=== PATIENT | female | born 1960 | race Caucasian/White ===

== ENCOUNTER 2018-07-06 21:31 | Inpatient (IN) | payer OTHER ==
[~2018-07-06] VITALS: Ht 162.6 cm; Wt 128.5 kg
[2018-07-06] MEDS ORDERED: ADENOSINE 6 MG/2 ML ONE ×2 (21:47→22:00)
[2018-07-06 21:57] LABS: BASOPHILS # (AUTO) 0.13 x10^3/uL (0-0.1); BASOPHILS % (AUTO) 1 % (0-1); EOSINOPHILS % (AUTO) 1 % (1-7); LYMPHOCYTES # (AUTO) 4.65 x10^3/uL (1-3.4); LYMPHOCYTES % (AUTO) 39 % (22-44); MD NO; MEAN CORPUSCULAR HEMOGLOBIN 29.3 pg (27.0-34.8); MEAN CORPUSCULAR HGB CONC 33.1 g/dL (32.4-35.8); MEAN CORPUSCULAR VOLUME 88.4 fL (80-100); MEAN PLATELET VOLUME 8.2 fL (7.4-10.4); MONOCYTES # (AUTO) 0.93 x10^3/uL (0.2-0.8); MONOCYTES % (AUTO) 8 % (2-9); NEUTROPHILS # (AUTO) 6.08 x10^3/uL (1.8-6.8); NEUTROPHILS % (AUTO) 51 % (42-75); PLATELET COUNT 434 x10^3/uL (130-400)
[2018-07-06] MEDS ORDERED: SODIUM CHLORIDE 0.9% 1,000ML IVBOLUS ONE (22:00)
[2018-07-06] MEDS ORDERED: SODIUM CHLORIDE FLUSH 10ML SYR IVF ONE (22:00)
[2018-07-06] MEDS ORDERED: ADENOSINE 6 MG/2 ML IVPush ONE ×2 (22:00)
[2018-07-06] MEDS ORDERED: PROPOFOL 10 MG/ML, 20ML ONE (22:04)
[2018-07-06 22:08] LABS: ALANINE AMINOTRANSFERASE 78 U/L (12-78); ALBUMIN 3.5 g/dL (3.4-5.0); ANION GAP 11 mmol/L (5-15); CALCIUM 8.9 mg/dL (8.5-10.1); CHLORIDE 108 mmol/L (98-107); CREATININE 1.43 mg/dL (0.55-1.02)
[2018-07-06 22:18] LABS: ALKALINE PHOSPHATASE 113 U/L (45-117); BILIRUBIN,TOTAL 0.6 mg/dL (0.2-1.0); T4 (THYROXINE) 11.8 mcg/dL (4.8-13.9); TOTAL PROTEIN 8.2 g/dL (6.4-8.2)
[2018-07-06] MEDS ORDERED: PROPOFOL 10 MG/ML, 20ML IVPush ONE (22:30)
[2018-07-06] MEDS ORDERED: APIXABAN 5 MG TABLET PO ONE (23:00)
[2018-07-07] MEDS ORDERED: LABETALOL 5MG/ML, 20ML IVPush PRN
[2018-07-07] MEDS ORDERED: TEMAZEPAM 15 MG CAPSULE PO PRN
[2018-07-07] MEDS ORDERED: ACETAMINOPHEN 325 MG TABLET PO PRN
[2018-07-07] MEDS ORDERED: DOCUSATE 100 MG CAPSULE PO PRN
[2018-07-07] MEDS ORDERED: ONDANSETRON 2MG/ML, 2ML IVPush PRN
[2018-07-07] MEDS ORDERED: MELA1TAB15 PO (00:47)
[2018-07-07] MEDS ORDERED: ASPI-650 PO (00:47)
[2018-07-07 01:00] VITALS: BP 146/98
[2018-07-07] MEDS: SODIUM CHLORIDE 0.9% 1,000 ML IV SCH ×3 (01:19→23:44)
[2018-07-07] MEDS ORDERED: BUDE10.2 PO (01:53)
[2018-07-07] MEDS ORDERED: AMLO5TAB4 PO (01:53)
[2018-07-07] MEDS ORDERED: ALBU90AE PO (01:53)
[2018-07-07 05:03] LABS: BASOPHILS # (AUTO) 0.14 x10^3/uL (0-0.1); BASOPHILS % (AUTO) 1 % (0-1); EOSINOPHILS # (AUTO) 0.08 x10^3/uL (0-0.4); EOSINOPHILS % (AUTO) 1 % (1-7); LYMPHOCYTES # (AUTO) 3.57 x10^3/uL (1-3.4); LYMPHOCYTES % (AUTO) 36 % (22-44); MD NO; MEAN CORPUSCULAR HEMOGLOBIN 29.5 pg (27.0-34.8); MEAN CORPUSCULAR HGB CONC 33.5 g/dL (32.4-35.8); MEAN CORPUSCULAR VOLUME 88.2 fL (80-100); MEAN PLATELET VOLUME 8.4 fL (7.4-10.4); MONOCYTES # (AUTO) 1.08 x10^3/uL (0.2-0.8); MONOCYTES % (AUTO) 11 % (2-9); NEUTROPHILS # (AUTO) 5.18 x10^3/uL (1.8-6.8); NEUTROPHILS % (AUTO) 52 % (42-75); PLATELET COUNT 329 x10^3/uL (130-400); RED BLOOD COUNT 4.82 x10^6/uL (3.82-5.3); RED CELL DISTRIBUTION WIDTH 14.4 % (9.6-15.2)
[2018-07-07 05:11] LABS: ANION GAP 8 mmol/L (5-15); CHLORIDE 112 mmol/L (98-107)
[2018-07-07 05:12] LABS: CREATININE 0.78 mg/dL (0.55-1.02)
[2018-07-07 06:43] VITALS: BP 120/79
[2018-07-07] MEDS: APIXABAN 5 MG TABLET PO SCH ×2 (09:44→20:00)
[2018-07-07 12:54] VITALS: BP 118/76
[2018-07-07 19:47] VITALS: BP 139/86
[2018-07-07] MEDS ORDERED: MELATONIN 5 MG TABLET PO PRN (21:00)
[2018-07-07] MEDS ORDERED: AMLODIPINE 5 MG TABLET PO SCH (21:00)
[2018-07-08 01:57] VITALS: BP 111/72
[2018-07-08 05:11] LABS: BASOPHILS # (AUTO) 0.05 x10^3/uL (0-0.1); BASOPHILS % (AUTO) 1 % (0-1); EOSINOPHILS # (AUTO) 0.18 x10^3/uL (0-0.4); EOSINOPHILS % (AUTO) 2 % (1-7); LYMPHOCYTES # (AUTO) 3.01 x10^3/uL (1-3.4); LYMPHOCYTES % (AUTO) 39 % (22-44); MD NO; MEAN CORPUSCULAR HEMOGLOBIN 30.5 pg (27.0-34.8); MEAN CORPUSCULAR HGB CONC 34.6 g/dL (32.4-35.8); MEAN PLATELET VOLUME 8.2 fL (7.4-10.4); MONOCYTES # (AUTO) 0.91 x10^3/uL (0.2-0.8); MONOCYTES % (AUTO) 12 % (2-9); NEUTROPHILS # (AUTO) 3.53 x10^3/uL (1.8-6.8); NEUTROPHILS % (AUTO) 46 % (42-75); PLATELET COUNT 333 x10^3/uL (130-400); RED BLOOD COUNT 4.75 x10^6/uL (3.82-5.3); RED CELL DISTRIBUTION WIDTH 14.1 % (9.6-15.2)
[2018-07-08 05:24] LABS: ANION GAP 9 mmol/L (5-15); CALCIUM 8.2 mg/dL (8.5-10.1); CHLORIDE 110 mmol/L (98-107); CREATININE 0.55 mg/dL (0.55-1.02)
[2018-07-08] MEDS ORDERED: LEVOTHYROXINE 25 MCG TABLET PO SCH (06:00)
[2018-07-08 08:35] VITALS: BP 144/88
[2018-07-08] MEDS: APIXABAN 5 MG TABLET PO SCH (08:41)
[2018-07-08] MEDS ORDERED: METOPROLOL TARTRATE 25 MG TABLET PO SCH (09:00)
[2018-07-08 13:44] VITALS: BP 148/83
[2018-07-08] MEDS ORDERED: METO25TA35 PO (14:55)
[2018-07-08] MEDS ORDERED: APIX5TAB PO (14:55)
[2018-07-08] MEDS: SODIUM CHLORIDE 0.9% 1,000 ML IV SCH (15:11)
== END 2018-07-08 16:27 | disposition home or self-care (01) | DRG 683 ==
LOC: ED 23:05 → EDIP 23:10 → UNDOADMIN 23:10 → ED 23:14 → EDIP 23:51 → 5SO 07-07 00:21 → DCLOUNGE 07-08 16:09
PROVIDERS: ADMIT Internal Medicine; ATTEND Internal Medicine
PROC: 5A2204Z Restoration of Cardiac Rhythm, Single (ICD-10-PCS; principal; 2018-07-06)
DX: N17.9 Acute kidney failure, unspecified (principal); I47.1 Supraventricular tachycardia; D68.59 Other primary thrombophilia; Z68.42 Body mass index [BMI] 45.0-49.9, adult; I48.92 Unspecified atrial flutter; E03.9 Hypothyroidism, unspecified; E66.01 Morbid (severe) obesity due to excess calories; G62.9 Polyneuropathy, unspecified; I11.9 Hypertensive heart disease without heart failure; I44.60 Unspecified fascicular block; I45.10 Unspecified right bundle-branch block; I48.91 Unspecified atrial fibrillation; F41.9 Anxiety disorder, unspecified; R73.9 Hyperglycemia, unspecified; J45.909 Unspecified asthma, uncomplicated; M71.20 Synovial cyst of popliteal space [Baker], unspecified knee; Z79.01 Long term (current) use of anticoagulants; Z82.0 Family history of epilepsy and other diseases of the nervous system; Z82.3 Family history of stroke; Z82.49 Family history of ischemic heart disease and other diseases of the circulatory system; Z86.711 Personal history of pulmonary embolism
CPT/HCPCS: 36415; 71045; 78582; 80048; 80053; 83735; 84100; 84436; 84443; 85025; 85379; 92960; 93005; 93306; 93970; 99152; 99285; 99291; G0378; J2704; A9540; A9558; C9898; J7030

== ENCOUNTER 2018-07-16 20:53 | Emergency (ER) | payer OTHER ==
[~2018-07-16] VITALS: Ht 162.6 cm; Wt 122.7 kg
[~2018-07-16 20:53] MED LIST: ALBU90AE PO; AMLO5TAB4 PO; APIX5TAB PO; ASPI-650 PO; BUDE10.2 PO; MELA1TAB15 PO; METO25TA35 PO
[2018-07-16] MEDS ORDERED: DILTIAZEM 5 MG/ML, 5ML ONE (21:11)
[2018-07-16] MEDS ORDERED: ADENOSINE 6 MG/2 ML ONE (21:13)
[2018-07-16] MEDS ORDERED: ADENOSINE 6 MG/2 ML IVPush ONE ×2 (21:30)
[2018-07-16] MEDS ORDERED: SODIUM CHLORIDE 0.9% 1,000ML IVBOLUS ONE (21:30)
[2018-07-16] MEDS ORDERED: DILTIAZEM 5 MG/ML, 5ML IV ONE (21:30)
[2018-07-16] MEDS ORDERED: FLUT1DIS3 INH (21:32)
[2018-07-16 22:04] LABS: ALBUMIN 3.6 g/dL (3.4-5.0); ANION GAP 12 mmol/L (5-15); CHLORIDE 106 mmol/L (98-107); CREATININE 0.85 mg/dL (0.55-1.02)
[2018-07-16 22:05] LABS: MEAN CORPUSCULAR HGB CONC 33.7 g/dL (32.4-35.8); MEAN CORPUSCULAR VOLUME 88.9 fL (80-100); MEAN PLATELET VOLUME 8.7 fL (7.4-10.4); PLATELET COUNT 397 x10^3/uL (130-400); RED BLOOD COUNT 5.66 x10^6/uL (3.82-5.3); RED CELL DISTRIBUTION WIDTH 14.3 % (9.6-15.2)
[2018-07-16 22:08] LABS: TROPONIN I < 0.015 ng/mL (0.000-0.045)
[2018-07-16] MEDS ORDERED: PROPOFOL 10 MG/ML, 20ML ONE (22:24)
[2018-07-16] MEDS ORDERED: PROPOFOL 10 MG/ML, 20ML IVP ONE (22:30)
[2018-07-16 22:32] LABS: BASOPHILS # (AUTO) 0.09 x10^3/uL (0-0.1); BASOPHILS % (AUTO) 1 % (0-1); EOSINOPHILS # (AUTO) 0.15 x10^3/uL (0-0.4); EOSINOPHILS % (AUTO) 1 % (1-7); LYMPHOCYTES # (AUTO) 4.99 x10^3/uL (1-3.4); LYMPHOCYTES % (AUTO) 45 % (22-44); MD SCAN; MONOCYTES # (AUTO) 1.22 x10^3/uL (0.2-0.8); MONOCYTES % (AUTO) 11 % (2-9); NEUTROPHILS # (AUTO) 4.69 x10^3/uL (1.8-6.8); NEUTROPHILS % (AUTO) 42 % (42-75)
[2018-07-16] MEDS ORDERED: METOPROLOL 1 MG/ML, 5ML ONE ×2 (22:44→22:49)
[2018-07-16] MEDS ORDERED: METOPROLOL TARTRATE 25 MG TABLET ONE ×2 (23:17→23:20)
[2018-07-16] MEDS ORDERED: METOPROLOL 1 MG/ML, 5ML IVPush STA ×2 (23:25)
[2018-07-16 23:28] VITALS: BP 128/77
[2018-07-16] MEDS ORDERED: METOPROLOL TARTRATE 50 MG TABLET PO ONE (23:30)
== END 2018-07-16 23:43 | disposition home or self-care (01) ==
LOC: ED 22:49
DX: I48.0 Paroxysmal atrial fibrillation (principal); I10 Essential (primary) hypertension
CPT/HCPCS: 36415; 80048; 82040; 84484; 85025; 92960; 93005; 96374; 99152; 99291; J0153; J2704; J7030

== ENCOUNTER 2018-11-02 14:34 | Emergency (ER) | payer OTHER ==
[~2018-11-02] VITALS: Ht 162.6 cm; Wt 126.0 kg
[~2018-11-02 14:34] MED LIST changes: +FLUT1DIS3 INH
[2018-11-02] MEDS ORDERED: METO25TA35 PO (14:53)
[2018-11-02] MEDS ORDERED: BENZ100C PO (14:53)
[2018-11-02] MEDS ORDERED: ADENOSINE 6 MG/2 ML ONE (14:57)
[2018-11-02] MEDS ORDERED: ADENOSINE 6 MG/2 ML IVPush ONE (15:00)
[2018-11-02] MEDS ORDERED: SODIUM CHLORIDE FLUSH 10ML SYR IVF ONE (15:00)
--- NOTE | 2018-11-02 15:00 | NUR ---
Late note entry for 1454: First contact with pt. Pt ambulates with steady gait and balance. Pt pushed in wheelchair from triage to ED room and walked to ED gurney. Pt tachycardic at 190. Pt is AOX4, cms intact, no neuro defecits observed. PIV established by staffing clerk in right hand. career technical counselor performing EKG at bedside. Pt connected to all monitors. Pt has unlabored respirations equal bilaterally. All safety measures in place. Call light within reach.
[2018-11-02] MEDS ORDERED: PROPOFOL 10 MG/ML, 20ML ONE (15:12)
[2018-11-02 15:21] LABS: ALBUMIN 3.4 g/dL (3.4-5.0); ANION GAP 10 mmol/L (5-15); CALCIUM 8.8 mg/dL (8.5-10.1); CHLORIDE 107 mmol/L (98-107); CREATININE 0.84 mg/dL (0.55-1.02)
[2018-11-02] MEDS ORDERED: METOPROLOL 1 MG/ML, 5ML IVPush ONE (15:30)
[2018-11-02] MEDS ORDERED: METOPROLOL TARTRATE 25 MG TABLET ONE (15:50)
[2018-11-02 15:56] VITALS: BP 130/76
--- NOTE | 2018-11-02 15:57 | NUR ---
LATE NOTE ENTRY FOR 1509: Pt provided medication per EMAR for cardioversion. Pt tolerated medication with out complications. Suction set up at bedside. Ambu bag set up and ready to use. Oxygen via nasal cannula set up at bedside. All safety measures in place. Pt connected to groundwater monitoring technician, NIBP, and continous pulse ox. Pt maintained airway and remained AOX4. NADN. Pt reverted back to SVT post medication administration. Addendum: 11/02/18 at 1559 by [employer] Code blue card, reversal agent also set up at bedside.
--- NOTE | 2018-11-02 15:59 | NUR ---
LATE NOTE ENTRY FOR 1516: Consent for procedural sedation obtained. Pt states consent and understanding. Pt connected to cardiac cath technician, nibp, and continous pulse ox. Pt on 2L of oxygen via nasal cannula. Suciton set up at bedside. Ambu bag set up and ready for use at bedside. Code blue cart at bedside. Reversal agent at bedside. EDMD provided procedural sedation medication of propofol 70 mg. Wittnessed waste of 120 mg propofol with two ED staff RNs. Jaw thrust manuever performed post cardioversion procedure to help maintain pt's apneic airway. Pt regained maintaining airway at 1521. Pt tolerated procedure without complications. Pt returned to baseline at 1521 AOX4, BP 140/92, 90% ROOM AIR, HR 95, RR 19. Pt's family at bedside. All safety measures in place. ZOYAN.
[2018-11-02] MEDS ORDERED: METOPROLOL TARTRATE 50 MG TABLET PO ONE (16:00)
--- NOTE | 2018-11-02 16:05 | NUR ---
Provided pt medication per EMAR. Family at bedside. NADN. All safety measures in place. No needs expressed. Call light within reach.
--- NOTE | 2018-11-02 16:05 | NUR ---
LATE NOTE ENTRY FOR 1521: Pt regained maintaining airway at 1521. Pt tolerated procedure without complications. Pt returned to baseline at 1521 AOX4, BP 140/92, 90% ROOM AIR, HR 95, RR 19. Pt's family at bedside. All safety measures in place. NADN.
--- NOTE | 2018-11-02 16:11 | NUR ---
TASK RN: PT SITTING UP IN [place] BEE NOTED. NSR ON MONITOR. DENIES CP/SOB. DC EDUCATION PROVIDED, PT DEMONSTRATES UNDERSTANDING. PT AMBULATED STEADILY TO DC WITH RN AND FAMILY. FAMILY TO TRANSPORT PT HOME.
== END 2018-11-02 16:13 | disposition home or self-care (01) ==
LOC: ED 16:00
DX: I47.1 Supraventricular tachycardia (principal); I48.91 Unspecified atrial fibrillation; I10 Essential (primary) hypertension
CPT/HCPCS: 36415; 80048; 82040; 83735; 92960; 93005; 96374; 99152; 99285; J0153

== ENCOUNTER 2018-12-04 15:11 | Emergency (ER) | payer OTHER ==
[~2018-12-04] VITALS: Ht 162.6 cm; Wt 126.0 kg
[~2018-12-04 15:11] MED LIST changes: +BENZ100C PO
[2018-12-04] MEDS ORDERED: SODIUM CHLORIDE FLUSH 10ML SYR IVF ONE (15:30)
[2018-12-04] MEDS ORDERED: ADENOSINE 6 MG/2 ML ONE ×2 (15:35→15:43)
[2018-12-04 15:37] LABS: BASOPHILS # (AUTO) 0.05 x10^3/uL (0-0.1); BASOPHILS % (AUTO) 1 % (0-1); EOSINOPHILS # (AUTO) 0.12 x10^3/uL (0-0.4); EOSINOPHILS % (AUTO) 1 % (1-7); LYMPHOCYTES # (AUTO) 3.69 x10^3/uL (1-3.4); LYMPHOCYTES % (AUTO) 37 % (22-44); MD NO; MEAN CORPUSCULAR HEMOGLOBIN 29.4 pg (27.0-34.8); MEAN CORPUSCULAR VOLUME 89.1 fL (80-100); MEAN PLATELET VOLUME 8.3 fL (7.4-10.4); MONOCYTES # (AUTO) 1.11 x10^3/uL (0.2-0.8); MONOCYTES % (AUTO) 11 % (2-9); NEUTROPHILS # (AUTO) 5.11 x10^3/uL (1.8-6.8); NEUTROPHILS % (AUTO) 51 % (42-75); PLATELET COUNT 422 x10^3/uL (130-400); RED BLOOD COUNT 5.74 x10^6/uL (3.82-5.3); RED CELL DISTRIBUTION WIDTH 14.6 % (9.6-15.2)
--- NOTE | 2018-12-04 15:47 | NUR ---
ATTEMPTED CARDIOVERSION W/ 6 THEN 12 RAPID PUSH ADENOSINE W/ MD [place] AT BEDSIDE. PT CONVERTED FOR 10 BEATS THEN RESUMED SVT RATE OF 190S. CONSULTING W/ CARDS. PT IN BED, NAD, NO NEEDS AT THIS TIME, AWARE OF POC. WCTM
[2018-12-04 15:49] LABS: ALANINE AMINOTRANSFERASE 27 U/L (12-78); ALBUMIN 3.3 g/dL (3.4-5.0); ANION GAP 9 mmol/L (5-15); CALCIUM 8.4 mg/dL (8.5-10.1); CHLORIDE 109 mmol/L (98-107); CREATININE 0.97 mg/dL (0.55-1.02); T4 (THYROXINE) 11.2 mcg/dL (4.8-13.9)
[2018-12-04] MEDS ORDERED: PROPOFOL 10 MG/ML, 20ML ONE (15:55)
[2018-12-04 15:59] LABS: ALKALINE PHOSPHATASE 91 U/L (45-117); BILIRUBIN,TOTAL 0.4 mg/dL (0.2-1.0); TOTAL PROTEIN 7.8 g/dL (6.4-8.2)
[2018-12-04] MEDS ORDERED: ADENOSINE 6 MG/2 ML IVPush ONE ×2 (17:00)
[2018-12-04] MEDS ORDERED: PROPOFOL 10 MG/ML, 20ML IVPush ONE (17:00)
--- NOTE | 2018-12-04 17:01 | NUR ---
IPT. TOLERATED HER CARDIOVERSION WELL. PT. REMAINS MONITORED. PT. IS AWAKE AND ALERT, RESTING WITHOUT CONCERNS.
--- NOTE | 2018-12-04 18:07 | NUR ---
PT. WAS GIVEN DISCHARGE INSTRUCTIONS WITH UNDERSTANDING VERBALIZED ALONG WITH WILLINGNESS TO COMPLY. PT.'S IV WAS DCD',CATH TIP INTACT. PRESSURE HELD WITH HEMOSTASIS ACHIEVED. PT. WAS AMBULATORY WITH A STEADY GAIT TO THE DISCHARGE DESK, VSS. PT.'S DAUGHTER IS DRIVING.
[2018-12-04 18:10] VITALS: BP 118/70
[2018-12-23] MEDS ORDERED: FLUT9.9S NS (11:12)
[2018-12-23] MEDS ORDERED: AMLO-150 PO (11:12)
[2018-12-23] MEDS ORDERED: BUDE10.22 INH (11:12)
[2018-12-23] MEDS ORDERED: APIX2.5T PO (11:12)
== END 2018-12-04 18:17 | disposition home or self-care (01) ==
LOC: ED 17:36
DX: I47.1 Supraventricular tachycardia (principal); R55 Syncope and collapse
CPT/HCPCS: 36415; 80053; 84436; 84443; 85025; 92960; 93005; 96374; 99285; J0153

== ENCOUNTER → 2018-12-23 | Outpatient (CLI) | payer OTHER ==
[~2018-12-23] MED LIST changes: +AMLO-150 PO; +APIX2.5T PO; +BUDE10.22 INH; +FLUT9.9S NS; +OMNIPAQUE 350 MG/ML, 150 ML BOTTLE ONE
== END | disposition home or self-care (01) ==
LOC: CFH 09:43
PROVIDERS: ATTEND Internal Medicine Cardiovascular Disease
DX: I48.91 Unspecified atrial fibrillation (principal); M47.814 Spondylosis without myelopathy or radiculopathy, thoracic region
CPT/HCPCS: 71046; 75572; Q9967

== ENCOUNTER 2018-12-25 06:33 | Day surgery (SDC) | payer OTHER ==
[2018-12-23 11:12] VITALS: BP 159/102
[2018-12-23 11:48] LABS: BASOPHILS # (AUTO) 0.05 x10^3/uL (0-0.1); BASOPHILS % (AUTO) 1 % (0-1); EOSINOPHILS % (AUTO) 1 % (1-7); LYMPHOCYTES # (AUTO) 2.67 x10^3/uL (1-3.4); LYMPHOCYTES % (AUTO) 33 % (22-44); MD NO; MEAN CORPUSCULAR HEMOGLOBIN 29.3 pg (27.0-34.8); MEAN CORPUSCULAR HGB CONC 32.6 g/dL (32.4-35.8); MEAN CORPUSCULAR VOLUME 89.9 fL (80-100); MEAN PLATELET VOLUME 8.4 fL (7.4-10.4); MONOCYTES # (AUTO) 1.01 x10^3/uL (0.2-0.8); MONOCYTES % (AUTO) 13 % (2-9); NEUTROPHILS # (AUTO) 4.16 x10^3/uL (1.8-6.8); NEUTROPHILS % (AUTO) 52 % (42-75); PLATELET COUNT 360 x10^3/uL (130-400); RED BLOOD COUNT 5.46 x10^6/uL (3.82-5.3); RED CELL DISTRIBUTION WIDTH 14.4 % (9.6-15.2)
[2018-12-23 11:58] LABS: ALBUMIN 3.6 g/dL (3.4-5.0); ANION GAP 6 mmol/L (5-15); CALCIUM 8.6 mg/dL (8.5-10.1); CHLORIDE 108 mmol/L (98-107)
[2018-12-23 12:02] LABS: ALANINE AMINOTRANSFERASE 25 U/L (12-78); ALKALINE PHOSPHATASE 91 U/L (45-117); BILIRUBIN,TOTAL 0.7 mg/dL (0.2-1.0); CREATININE 0.62 mg/dL (0.55-1.02); TOTAL PROTEIN 7.8 g/dL (6.4-8.2)
[~2018-12-25] VITALS: Ht 162.6 cm; Wt 125.0 kg
[~2018-12-25 06:33] MED LIST changes: -OMNIPAQUE 350 MG/ML, 150 ML BOTTLE ONE
[2018-12-25] MEDS ORDERED: SODIUM CHLORIDE 0.9% 1,000 ML IV SCH ×2 (06:45→07:00)
[2018-12-25] MEDS ORDERED: MIDAZOLAM 1 MG/ML, 2ML ONE (07:22)
[2018-12-25] MEDS ORDERED: PROPOFOL 10 MG/ML, 20ML ONE (07:22)
[2018-12-25] MEDS ORDERED: FENTANYL PF 250 MCG/5ML ONE (07:22)
[2018-12-25] MEDS ORDERED: ROCURONIUM 10 MG/ML,10ML ONE (07:24)
[2018-12-25] MEDS ORDERED: ONDANSETRON 2MG/ML, 2ML ONE (07:24)
[2018-12-25] MEDS ORDERED: PHENYLEPHRINE 10 MG/ML ONE (07:24)
[2018-12-25] MEDS ORDERED: SUCCINYLCHOLINE 20 MG/ML, 10ML ONE (07:24)
[2018-12-25] MEDS ORDERED: DEXAMETHASONE 4 MG/ML, 5ML ONE (07:26)
[2018-12-25] MEDS ORDERED: PROTAMINE SULFATE 10 MG/ML, 5ML ONE (07:28)
[2018-12-25] MEDS ORDERED: HEPARIN 1,000 UNITS/ML, 10ML ONE (07:28)
[2018-12-25] MEDS ORDERED: ADENOSINE 6 MG/2 ML ONE ×2 (08:30→08:34)
[2018-12-25] MEDS ORDERED: METOPROLOL 1 MG/ML, 5ML ONE (08:31)
[2018-12-25] MEDS ORDERED: TEMPLATE NON-FORMULARY MED. (Budesonide/Formoterol Fumarate (Symbicort 80-4.5 Mcg Inhaler) INH PRN (09:30)
[2018-12-25] MEDS ORDERED: ACETAMINOPHEN 325 MG TABLET PO PRN (09:30)
[2018-12-25] MEDS ORDERED: TEMPLATE NON-FORMULARY MED. (Albuterol Sulfate (Proair Respiclick) 2 PUFFS) PO SCH (09:30)
[2018-12-25] MEDS ORDERED: TEMPLATE NON-FORMULARY MED. (Fluticasone Propionate (Flonase Allergy Relief) 1 SPRAY) NS PRN (09:30)
[2018-12-25] MEDS ORDERED: DIAZEPAM 5 MG/ML, 2ML IVPush PRN (10:00)
[2018-12-25] MEDS ORDERED: LABETALOL 5MG/ML, 20ML IV PRN (10:00)
[2018-12-25] MEDS ORDERED: HYDROmorphone 2 MG/ML, 1ML IVPush PRN (10:00)
[2018-12-25] MEDS ORDERED: FENTANYL PF 100 MCG/2ML IV PRN (10:00)
[2018-12-25] MEDS ORDERED: ONDANSETRON ODT 8 MG PO PRN (10:00)
[2018-12-25] MEDS ORDERED: MEPERIDINE/PF 25MG/0.5ML IVPush PRN (10:00)
[2018-12-25] MEDS ORDERED: MORPHINE SULFATE 4 MG/ML, 1ML IVPush PRN (10:00)
[2018-12-25] MEDS ORDERED: hydrALAzine 20 MG/ML, 1ML IV PRN (10:00)
[2018-12-25] MEDS ORDERED: MIDAZOLAM 1 MG/ML, 2ML IV PRN (10:00)
[2018-12-25] MEDS ORDERED: EPHEDRINE 50 MG/ML, 1ML IVPush PRN (10:00)
[2018-12-25] MEDS ORDERED: OXYcodone 5 MG/5 ML ORAL.SOL UDC PO PRN (10:00)
[2018-12-25] MEDS ORDERED: PROMETHAZINE 12.5 MG SUPP PR PRN (10:00)
[2018-12-25] MEDS ORDERED: ONDANSETRON 2MG/ML, 2ML IV PRN (10:00)
[2018-12-25] MEDS ORDERED: HALOPERIDOL 5 MG/ML IV PRN (10:00)
[2018-12-25] MEDS ORDERED: ALBUTEROL SULFATE 2.5 MG/3 ML NPPB PRN (10:00)
[2018-12-25] MEDS ORDERED: PROMETHAZINE 25 MG/ML, 1ML IV PRN (10:00)
[2018-12-25] MEDS ORDERED: APIXABAN 2.5 MG TABLET PO SCH (10:12)
[2018-12-25] MEDS ORDERED: OXYcodone 5 MG/5 ML ORAL.SOL UDC ONE (10:13)
[2018-12-25] MEDS ORDERED: METOPROLOL TARTRATE 50 MG TABLET PO SCH (21:00)
[2018-12-26] MEDS ORDERED: AMLODIPINE 5 MG TABLET PO SCH (09:00)
== END 2018-12-25 14:19 | disposition home or self-care (01) ==
LOC: CACL 06:33
PROVIDERS: ATTEND Internal Medicine Cardiovascular Disease
DX: I47.1 Supraventricular tachycardia (principal); I48.91 Unspecified atrial fibrillation; I10 Essential (primary) hypertension; J45.909 Unspecified asthma, uncomplicated; Z98.890 Other specified postprocedural states; Z88.1 Allergy status to other antibiotic agents; Z88.5 Allergy status to narcotic agent; Z88.0 Allergy status to penicillin
CPT/HCPCS: 36415; 80053; 85025; 93312; 93321; 93325; 93613; 93621; 93653; C1730; C1731; C1732; C1894; J0153; J0330; J1100; J1644; J2250; J2370; J2405; J2704; J2720; J3010

== ENCOUNTER 2018-12-26 19:18 | Emergency (ER) | payer OTHER ==
[~2018-12-26] VITALS: Ht 162.6 cm; Wt 131.6 kg
[2018-12-26 20:04] LABS: MEAN CORPUSCULAR HEMOGLOBIN 29.9 pg (27.0-34.8); MEAN CORPUSCULAR HGB CONC 33.4 g/dL (32.4-35.8); MEAN CORPUSCULAR VOLUME 89.6 fL (80-100); MEAN PLATELET VOLUME 7.9 fL (7.4-10.4); PLATELET COUNT 335 x10^3/uL (130-400); RED BLOOD COUNT 4.86 x10^6/uL (3.82-5.3); RED CELL DISTRIBUTION WIDTH 14.5 % (9.6-15.2)
[2018-12-26 20:13] LABS: ALANINE AMINOTRANSFERASE 36 U/L (12-78); ALBUMIN 3.6 g/dL (3.4-5.0); ANION GAP 7 mmol/L (5-15); CALCIUM 8.2 mg/dL (8.5-10.1); CHLORIDE 108 mmol/L (98-107); CREATININE 0.94 mg/dL (0.55-1.02)
--- NOTE | 2018-12-26 20:15 | NUR ---
PT HERE FOR COUGH WITH SOB. PT SEEN AT URGENT CARE AND GIVEN A NUB TREATMENT GENERAL OFFICE CLERK. PT WAS 89% AT .PT NOW 93% ON RA. PT HAD ABLATION AND TRANS ESOPHAGEAL ECHO YESTERDAY AND HAS BEEN COUGHING SINCE. PT IN NAD. PT PLACED ON ALL MONITORS. CALL LIGHT IN REACH
[2018-12-26 20:18] LABS: ALKALINE PHOSPHATASE 75 U/L (45-117); BILIRUBIN,TOTAL 0.3 mg/dL (0.2-1.0); TOTAL PROTEIN 7.6 g/dL (6.4-8.2); TROPONIN I 0.076 ng/mL (0.000-0.045)
--- NOTE | 2018-12-26 20:42 | NUR ---
PA AT BEDSIDE
[2018-12-26 20:47] LABS: MD YES
[2018-12-26 20:53] LABS: <PLATELET ESTIMATE> ADEQUATE; <PLT MORPHOLOGY> NORMAL PLT MORPH; <RBC MORPHOLOGY> NORMAL; LYMPH#(MANUAL) 4.72 x10^3/uL (1-3.4); LYMPHS% (MANUAL) 33 % (22-44); METAMYELOCYTES# (MANUAL) 0.14 x10^3/uL (0-0); METAMYELOCYTES% (MANUAL) 1 % (0-1); MONOS#(MANUAL) 0.57 x10^3/uL (0.3-2.7); MONOS% (MANUAL) 4 % (2-9); MYELOCYTES# (MANUAL) 0.14 x10^3/uL (0-0); MYELOCYTES% (MANUAL) 1 % (0-0); SEG#(MANUAL) 8.72 x10^3/uL (1.8-6.8); SEGS% (MANUAL) 61 % (42-75)
[2018-12-26] MEDS ORDERED: ALBUTEROL/IPRATROPIUM 2.5MG/0.5MG, 3 ML NPPB ONE (21:00)
[2018-12-26] MEDS ORDERED: ALBUTEROL/IPRATROPIUM 2.5MG/0.5MG, 3 ML ONE (21:18)
[2018-12-26 22:21] VITALS: BP 142/81
--- NOTE | 2018-12-26 22:21 | NUR ---
Patient given discharge instructions and they have confirmed that they understand the instructions. Patient ambulatory with steady gait.
== END 2018-12-26 22:23 | disposition home or self-care (01) ==
LOC: ED 21:23
DX: J20.8 Acute bronchitis due to other specified organisms (principal); R06.00 Dyspnea, unspecified; I48.91 Unspecified atrial fibrillation; I10 Essential (primary) hypertension
CPT/HCPCS: 36415; 80053; 83880; 84484; 85025; 93005; 94640; 99284; J7512; J7620

== ENCOUNTER 2021-05-08 11:20 | Day surgery (SDC) | payer OTHER ==
[~2021-05-08] VITALS: Ht 162.6 cm; Wt 108.0 kg
[~2021-05-08 11:20] MED LIST changes: +ACET325T26 PO; +ALPR0.5T7 PO; +ASPI-1026 PO; -ASPI-650 PO; +CYCL10TA2 PO; +ENOX40SY4 SQ; +ONDA4TAB13 PO; +OXYC30TA3 PO; +OXYC5TAB98 PO; +POLY17PO5 NG; +SENN-211 PO; +SERT50TA28 PO
[2021-05-08] MEDS ORDERED: SERT50TA28 PO (12:18)
[2021-05-08] MEDS ORDERED: APIX5TAB PO (12:19)
[2021-05-08] MEDS ORDERED: METO25TA35 PO (12:19)
[2021-05-08 12:24] LABS: BASOPHILS % (AUTO) 1 % (0-1); EOSINOPHILS % (AUTO) 1 % (1-7); LYMPHOCYTES % (AUTO) 32 % (22-44); MEAN CORPUSCULAR HEMOGLOBIN 29.1 pg (27.0-34.8); MEAN CORPUSCULAR HGB CONC 33.7 g/dL (32.4-35.8); MEAN PLATELET VOLUME 7.9 fL (7.4-10.4); MONOCYTES % (AUTO) 13 % (2-9); NEUTROPHILS % (AUTO) 53 % (42-75); PLATELET COUNT 407 x10^3/uL (130-400); RED BLOOD COUNT 5.17 x10^6/uL (3.82-5.3)
[2021-05-08 12:27] VITALS: BP 146/99
[2021-05-08 12:33] LABS: ANION GAP 4 mmol/L (5-15); CALCIUM 8.9 mg/dL (8.5-10.1); CHLORIDE 108 mmol/L (98-107); CREATININE 0.62 mg/dL (0.55-1.02)
[2021-05-08] MEDS ORDERED: PROPOFOL 10 MG/ML, 20ML ONE (13:05)
== END 2021-05-08 14:25 | disposition home or self-care (01) ==
LOC: CACL 11:20
PROVIDERS: ATTEND Internal Medicine Clinical Cardiac Electrophysiology
DX: I48.19 Other persistent atrial fibrillation (principal); I48.92 Unspecified atrial flutter; I34.0 Nonrheumatic mitral (valve) insufficiency; I10 Essential (primary) hypertension; E66.9 Obesity, unspecified; Z20.822 Contact with and (suspected) exposure to COVID-19; Z68.41 Body mass index [BMI] 40.0-44.9, adult; Z79.01 Long term (current) use of anticoagulants; Z79.891 Long term (current) use of opiate analgesic; Z79.899 Other long term (current) drug therapy; Z88.0 Allergy status to penicillin; Z88.2 Allergy status to sulfonamides; Z88.8 Allergy status to other drugs, medicaments and biological substances
CPT/HCPCS: 36415; 80048; 85025; 87635; 92960; 93312; 93321; 93325; J2704

== ENCOUNTER 2021-06-02 08:48 | Outpatient (CLI) | payer OTHER ==
[2021-06-02] MEDS ORDERED: OMNIPAQUE 350 MG/ML, 150 ML BOTTLE ONE (09:15)
[2021-06-12] MEDS ORDERED: DOXY100C2 PO (15:40)
== END 2021-06-02 23:59 | disposition home or self-care (01) ==
LOC: CFH 08:48 → RAD 23:59
PROVIDERS: ATTEND Internal Medicine Cardiovascular Disease
DX: I48.91 Unspecified atrial fibrillation (principal)
CPT/HCPCS: 75572; Q9967

== ENCOUNTER 2021-06-05 05:54 | Observation (INO) | payer OTHER ==
[~2021-06-05] VITALS: Ht 162.6 cm; Wt 108.2 kg
[2021-06-05 06:29] VITALS: BP 140/80
[2021-06-05] MEDS ORDERED: SODIUM CHLORIDE 0.9% 1,000 ML IV SCH (06:30)
[2021-06-05] MEDS ORDERED: TRAM50TA2 PO (06:39)
[2021-06-05 07:04] LABS: INTERNATIONAL NORMALIZED RATIO 1.05 (0.93-1.1); PROTHROMBIN TIME 11.2 Seconds (9.6-11.5)
[2021-06-05 07:05] LABS: ALANINE AMINOTRANSFERASE 17 U/L (12-78); ALBUMIN 3.2 g/dL (3.4-5.0); ANION GAP 4 mmol/L (5-15); CALCIUM 8.7 mg/dL (8.5-10.1); CHLORIDE 108 mmol/L (98-107); CREATININE 0.68 mg/dL (0.55-1.02)
[2021-06-05 07:06] LABS: BASOPHILS % (AUTO) 1 % (0-1); EOSINOPHILS % (AUTO) 2 % (1-7); LYMPHOCYTES % (AUTO) 32 % (22-44); MEAN CORPUSCULAR HEMOGLOBIN 28.5 pg (27.0-34.8); MEAN CORPUSCULAR HGB CONC 32.9 g/dL (32.4-35.8); MEAN PLATELET VOLUME 7.9 fL (7.4-10.4); MONOCYTES % (AUTO) 15 % (2-9); NEUTROPHILS % (AUTO) 51 % (42-75); PLATELET COUNT 385 x10^3/uL (130-400); RED BLOOD COUNT 5.39 x10^6/uL (3.82-5.3); RED CELL DISTRIBUTION WIDTH 15.9 % (9.6-15.2)
[2021-06-05 07:08] LABS: ALKALINE PHOSPHATASE 132 U/L (45-117); BILIRUBIN,TOTAL 0.6 mg/dL (0.2-1.0); TOTAL PROTEIN 7.6 g/dL (6.4-8.2)
[2021-06-05] MEDS ORDERED: FENTANYL PF 100 MCG/2ML ONE ×2 (07:37→12:32)
[2021-06-05] MEDS ORDERED: MIDAZOLAM 1 MG/ML, 2ML ONE (07:37)
[2021-06-05] MEDS ORDERED: LIDOCAINE-MPF 2% ,5ML ONE (07:41)
[2021-06-05] MEDS ORDERED: HEPARIN 1,000 UNITS/ML, 10ML ONE ×3 (07:41→09:35)
[2021-06-05] MEDS ORDERED: ONDANSETRON 2MG/ML, 2ML ONE (07:49)
[2021-06-05] MEDS ORDERED: DEXAMETHASONE 4 MG/ML, 1ML ONE (07:49)
[2021-06-05] MEDS ORDERED: PROPOFOL 10 MG/ML, 20ML ONE (07:49)
[2021-06-05] MEDS ORDERED: ROCURONIUM 10MG/ML,5ML ONE ×2 (07:49→08:53)
[2021-06-05] MEDS ORDERED: SUCCINYLCHOLINE 20 MG/ML, 10ML ONE (07:49)
[2021-06-05] MEDS ORDERED: OXYcodone 5 MG/5 ML ORAL.SOL UDC PO PRN (08:00)
[2021-06-05] MEDS ORDERED: EPHEDRINE 50 MG/ML, 1ML IVPush PRN (08:00)
[2021-06-05] MEDS ORDERED: hydrALAzine 20 MG/ML, 1ML IV PRN (08:00)
[2021-06-05] MEDS ORDERED: HYDROmorphone 1 MG/ML, 1ML INJ IVPush PRN (08:00)
[2021-06-05] MEDS ORDERED: ACETAMINOPHEN 325 MG TABLET PO PRN ×2 (08:00→12:30)
[2021-06-05] MEDS ORDERED: ONDANSETRON 2MG/ML, 2ML IVPush PRN ×2 (08:00→12:30)
[2021-06-05] MEDS ORDERED: LABETALOL 5MG/ML, 20ML IV PRN (08:00)
[2021-06-05] MEDS ORDERED: LIDOCAINE 2%, 20ML ONE (08:19)
[2021-06-05] MEDS ORDERED: PROMETHAZINE 25 MG/ML, 1ML IVPush PRN (08:30)
[2021-06-05] MEDS ORDERED: SUGAMMADEX 200 MG/2 ML IVPush ONE (08:45)
[2021-06-05] MEDS ORDERED: PHENYLEPHRINE 10 MG/ML ONE (08:46)
[2021-06-05] MEDS ORDERED: ISOPROTERENOL 0.2MG/ML, 5ML ONE (09:17)
[2021-06-05] MEDS ORDERED: ZOLPIDEM 5MG TABLET PO PRN (12:30)
[2021-06-05] MEDS ORDERED: (Budesonide/Formoterol Fumarate (Symbicort 80-4.5 Mcg Inhaler) INH PRN (12:30)
[2021-06-05] MEDS ORDERED: ALBUTEROL HFA 90 MCG/SPRAY INH PRN (12:30)
[2021-06-05] MEDS: FENTANYL PF 100 MCG/2ML IV PRN ×2 (12:35→12:45)
[2021-06-05] MEDS: APIXABAN 5 MG TABLET PO SCH ×2 (14:35→20:23)
[2021-06-05] MEDS ORDERED: SOTALOL 80MG TABLET PO SCH (18:00)
[2021-06-05 19:40] VITALS: BP 161/88
[2021-06-05] MEDS: SERTRALINE 50MG TABLET PO SCH (20:23)
[2021-06-05] MEDS: COLCHICINE 0.6 MG CAPSULE PO SCH (20:23)
[2021-06-05] MEDS ORDERED: APIXABAN 5 MG TABLET PO SCH (21:00)
[2021-06-06 01:33] VITALS: BP 152/81
[2021-06-06] MEDS ORDERED: SOTALOL 80MG TABLET PO SCH (06:00)
[2021-06-06 06:55] VITALS: BP 146/70
[2021-06-06] MEDS: SERTRALINE 50MG TABLET PO SCH (09:00)
[2021-06-06] MEDS ORDERED: AMLODIPINE 5 MG TABLET PO SCH (09:00)
[2021-06-06] MEDS: APIXABAN 5 MG TABLET PO SCH (09:00)
[2021-06-06] MEDS: COLCHICINE 0.6 MG CAPSULE PO SCH (09:01)
[2021-06-06] MEDS ORDERED: FLEC100T PO ×2 (10:26)
[2021-06-06] MEDS ORDERED: COLC0.6C3 PO (10:26)
== END 2021-06-06 14:16 | disposition home or self-care (01) ==
LOC: CACL 05:54 → 5SO 13:44 → INTOOBSV 22:17 → CACL 22:17
PROVIDERS: ADMIT Internal Medicine Cardiovascular Disease; ATTEND Internal Medicine Cardiovascular Disease
DX: I48.91 Unspecified atrial fibrillation (principal); Z20.822 Contact with and (suspected) exposure to COVID-19; I48.92 Unspecified atrial flutter; I47.1 Supraventricular tachycardia; I10 Essential (primary) hypertension; J45.909 Unspecified asthma, uncomplicated; F12.10 Cannabis abuse, uncomplicated; Z79.01 Long term (current) use of anticoagulants; Z79.899 Other long term (current) drug therapy; Z88.0 Allergy status to penicillin
CPT/HCPCS: 36415; 80053; 85025; 85347; 85610; 93005; 93306; 93312; 93321; 93325; 93613; 93655; 93656; 93657; 93662; C1730; C1732; C1759; C1766; C1893; C1894; G0378; J0330; J1100; J1644; J2250; J2370; J2405; J2704; J3010; J3490; U0003; U0005

== ENCOUNTER 2021-06-06 18:43 | Inpatient (IN) | payer OTHER ==
[~2021-06-06] VITALS: Ht 162.6 cm; Wt 104.1 kg
[~2021-06-06 18:43] MED LIST changes: +COLC0.6C3 PO; +FLEC100T PO; +TRAM50TA2 PO
[2021-06-06 20:17] LABS: BASOPHILS % (AUTO) 0 % (0-1); EOSINOPHILS % (AUTO) 0 % (1-7); LYMPHOCYTES % (AUTO) 10 % (22-44); MEAN CORPUSCULAR HEMOGLOBIN 28.9 pg (27.0-34.8); MEAN CORPUSCULAR HGB CONC 32.9 g/dL (32.4-35.8); MONOCYTES % (AUTO) 12 % (2-9); NEUTROPHILS % (AUTO) 78 % (42-75); PLATELET COUNT 353 x10^3/uL (130-400); RED BLOOD COUNT 4.98 x10^6/uL (3.82-5.3)
[2021-06-06 20:30] LABS: ALBUMIN 3.3 g/dL (3.4-5.0); ANION GAP 6 mmol/L (5-15); CALCIUM 9.1 mg/dL (8.5-10.1); CHLORIDE 103 mmol/L (98-107); CREATININE 0.99 mg/dL (0.55-1.02)
[2021-06-06] MEDS ORDERED: MORPHINE SULFATE 4 MG/ML, 1ML IVPush ONE (20:30)
[2021-06-06] MEDS ORDERED: MORPHINE SULFATE 4 MG/ML, 1ML ONE (20:38)
[2021-06-06] MEDS ORDERED: ASPIRIN 81 MG TABLET CHEW ONE (20:42)
[2021-06-06] MEDS ORDERED: ASPIRIN 81 MG TABLET CHEW PO ONE (21:00)
[2021-06-06] MEDS ORDERED: OMNIPAQUE 350 MG/ML, 75ML BOTTLE ONE (21:26)
[2021-06-06] MEDS ORDERED: PIPERACILLIN/TAZO 3.375 GM in DEXTROSE 5% 50 ML IVPB ONE (22:30)
[2021-06-06] MEDS ORDERED: FLECAINIDE 100MG TABLET PO ONE (22:30)
[2021-06-06] MEDS ORDERED: COLCHICINE 0.6 MG CAPSULE PO ONE (22:30)
[2021-06-06] MEDS ORDERED: APIXABAN 5 MG TABLET PO ONE (22:30)
[2021-06-06] MEDS ORDERED: COLCHICINE 0.6 MG CAPSULE ONE (22:45)
[2021-06-06] MEDS ORDERED: APIXABAN 5 MG TABLET ONE (22:45)
[2021-06-06] MEDS ORDERED: VANCOMYCIN PER PHARMACY MC PRN (23:00)
[2021-06-06] MEDS ORDERED: CEFEPIME 2 GM in DEXTROSE 5% 100 ML IV ONE (23:00)
--- NOTE | 2021-06-06 23:18 | NUR ---
HOSPITALIST AT BEDSIDE.
[2021-06-06] MEDS ORDERED: VANCOMYCIN 2,500 MG in SODIUM CHLORIDE 0.9% 500 ML IV ONE (23:30)
--- NOTE | 2021-06-06 23:51 | NUR ---
REPORT GIVEN TO MARIA GUADALUPE CROUCH.
[2021-06-07] MEDS ORDERED: LABETALOL 5MG/ML, 20ML IVPush PRN
[2021-06-07] MEDS ORDERED: morphine SULFATE 10 MG/ML, 1ML IVPush PRN
[2021-06-07] MEDS ORDERED: ACETAMINOPHEN 325 MG TABLET PO PRN
[2021-06-07] MEDS ORDERED: PROMETHAZINE 25 MG/ML, 1ML IM PRN
[2021-06-07 01:00] VITALS: BP 142/79
[2021-06-07] MEDS: COLCHICINE 0.6 MG CAPSULE PO SCH ×3 (01:19→20:27)
[2021-06-07] MEDS: SERTRALINE 50MG TABLET PO SCH ×3 (01:39→20:27)
[2021-06-07 04:36] LABS: BASOPHILS % (AUTO) 0 % (0-1); EOSINOPHILS % (AUTO) 0 % (1-7); LYMPHOCYTES % (AUTO) 14 % (22-44); MEAN CORPUSCULAR HEMOGLOBIN 29.1 pg (27.0-34.8); MEAN CORPUSCULAR HGB CONC 33.2 g/dL (32.4-35.8); MEAN PLATELET VOLUME 8.2 fL (7.4-10.4); MONOCYTES % (AUTO) 16 % (2-9); NEUTROPHILS % (AUTO) 69 % (42-75); PLATELET COUNT 327 x10^3/uL (130-400); RED BLOOD COUNT 4.74 x10^6/uL (3.82-5.3)
[2021-06-07 04:50] LABS: ANION GAP 6 mmol/L (5-15); CALCIUM 8.7 mg/dL (8.5-10.1); CHLORIDE 102 mmol/L (98-107)
[2021-06-07] MEDS: CEFTRIAXONE 2 GM in DEXTROSE 5% 50 ML IVPB SCH (04:55)
[2021-06-07] MEDS: DOXYCYCLINE 100 MG in DEXTROSE 5% 250 ML IV SCH ×2 (05:27→17:37)
[2021-06-07] MEDS: SENNA/DOCUSATE TABLET PO SCH (09:00)
[2021-06-07] MEDS ORDERED: FLECAINIDE 100MG TABLET PO SCH (09:00)
[2021-06-07 09:03] VITALS: BP 135/77
[2021-06-07 09:05] VITALS: BP 125/66
[2021-06-07] MEDS ORDERED: SERTRALINE 100MG TABLET ONE (09:13)
[2021-06-07] MEDS: APIXABAN 5 MG TABLET PO SCH ×2 (09:23→20:27)
[2021-06-07] MEDS: AMLODIPINE 5 MG TABLET PO SCH (09:42)
[2021-06-07 12:47] VITALS: BP 110/79
[2021-06-07 12:50] VITALS: BP 143/86
[2021-06-07 20:20] VITALS: BP 142/68
[2021-06-07] MEDS: ALBUTEROL SULFATE 2.5 MG/3 ML NPPB PRN (21:11)
[2021-06-08 04:00] VITALS: BP 137/83
[2021-06-08] MEDS: CEFTRIAXONE 2 GM in DEXTROSE 5% 50 ML IVPB SCH (04:18)
[2021-06-08] MEDS: DOXYCYCLINE 100 MG in DEXTROSE 5% 250 ML IV SCH ×2 (05:30→17:46)
[2021-06-08 06:00] LABS: BASOPHILS % (AUTO) 1 % (0-1); EOSINOPHILS % (AUTO) 0 % (1-7); LYMPHOCYTES % (AUTO) 16 % (22-44); MEAN CORPUSCULAR HEMOGLOBIN 28.9 pg (27.0-34.8); MEAN CORPUSCULAR HGB CONC 32.9 g/dL (32.4-35.8); MEAN PLATELET VOLUME 8.3 fL (7.4-10.4); MONOCYTES % (AUTO) 18 % (2-9); NEUTROPHILS % (AUTO) 65 % (42-75); PLATELET COUNT 284 x10^3/uL (130-400); RED BLOOD COUNT 4.65 x10^6/uL (3.82-5.3); RED CELL DISTRIBUTION WIDTH 15.5 % (9.6-15.2)
[2021-06-08 06:12] LABS: ANION GAP 7 mmol/L (5-15); CALCIUM 8.9 mg/dL (8.5-10.1); CHLORIDE 101 mmol/L (98-107); CREATININE 0.42 mg/dL (0.55-1.02)
[2021-06-08 06:28] VITALS: BP 163/87
[2021-06-08] MEDS: ALBUTEROL SULFATE 2.5 MG/3 ML NPPB PRN (07:05)
[2021-06-08] MEDS: APIXABAN 5 MG TABLET PO SCH ×2 (09:25→20:14)
[2021-06-08] MEDS: SERTRALINE 50MG TABLET PO SCH ×2 (09:25→20:15)
[2021-06-08] MEDS: SENNA/DOCUSATE TABLET PO SCH (09:25)
[2021-06-08] MEDS: AMLODIPINE 5 MG TABLET PO SCH (09:25)
[2021-06-08] MEDS: COLCHICINE 0.6 MG CAPSULE PO SCH ×2 (09:25→20:14)
[2021-06-08] MEDS ORDERED: ALBUTEROL HFA 90 MCG/SPRAY INH PRN (09:30)
[2021-06-08] MEDS: FLUTICASONE/VILANTEROL 200-25MCG/INH INH SCH (09:58)
[2021-06-08] MEDS: BUDESONIDE 0.5 MG/2 ML INHA INH SCH ×2 (12:30→19:21)
[2021-06-08] MEDS: ALBUTEROL SULFATE 2.5 MG/3 ML NPPB SCH ×2 (12:30→19:21)
[2021-06-08] MEDS ORDERED: ALBUTEROL SULFATE 2.5 MG/3 ML ONE (12:36)
[2021-06-08 13:47] VITALS: BP 141/71
[2021-06-08 20:12] VITALS: BP 152/77
[2021-06-08] MEDS: FLECAINIDE 100MG TABLET PO SCH (20:15)
[2021-06-09 02:24] VITALS: BP 130/75
[2021-06-09] MEDS: CEFTRIAXONE 2 GM in DEXTROSE 5% 50 ML IVPB SCH (04:22)
[2021-06-09] MEDS: DOXYCYCLINE 100 MG in DEXTROSE 5% 250 ML IV SCH ×2 (05:02→17:44)
[2021-06-09 07:08] VITALS: BP 148/81
[2021-06-09] MEDS ORDERED: FLUTICASONE FUROATE 200MCG/INH INH SCH (09:00)
[2021-06-09] MEDS: FLECAINIDE 100MG TABLET PO SCH ×2 (09:00→20:15)
[2021-06-09] MEDS: COLCHICINE 0.6 MG CAPSULE PO SCH ×2 (09:01→20:15)
[2021-06-09] MEDS: AMLODIPINE 5 MG TABLET PO SCH (09:01)
[2021-06-09] MEDS: APIXABAN 5 MG TABLET PO SCH ×2 (09:01→20:15)
[2021-06-09] MEDS: SERTRALINE 50MG TABLET PO SCH ×2 (09:02→20:15)
[2021-06-09] MEDS: SENNA/DOCUSATE TABLET PO SCH (09:02)
[2021-06-09] MEDS: FLUTICASONE/VILANTEROL 200-25MCG/INH INH SCH (09:19)
[2021-06-09 13:42] VITALS: BP 157/89
[2021-06-09 20:17] VITALS: BP 157/96
[2021-06-10 00:20] VITALS: BP 152/84
[2021-06-10] MEDS: CEFTRIAXONE 2 GM in DEXTROSE 5% 50 ML IVPB SCH (04:42)
[2021-06-10] MEDS: DOXYCYCLINE 100 MG in DEXTROSE 5% 250 ML IV SCH ×2 (06:16→17:17)
[2021-06-10 06:19] LABS: BASOPHILS % (AUTO) 1 % (0-1); EOSINOPHILS % (AUTO) 0 % (1-7); LYMPHOCYTES % (AUTO) 20 % (22-44); MEAN CORPUSCULAR HEMOGLOBIN 29.2 pg (27.0-34.8); MEAN CORPUSCULAR HGB CONC 33.3 g/dL (32.4-35.8); MEAN PLATELET VOLUME 8.7 fL (7.4-10.4); MONOCYTES % (AUTO) 13 % (2-9); NEUTROPHILS % (AUTO) 67 % (42-75); PLATELET COUNT 378 x10^3/uL (130-400); RED BLOOD COUNT 4.71 x10^6/uL (3.82-5.3); RED CELL DISTRIBUTION WIDTH 15.5 % (9.6-15.2)
[2021-06-10 06:53] LABS: CHLORIDE 101 mmol/L (98-107)
[2021-06-10 06:58] LABS: ALBUMIN 3.1 g/dL (3.4-5.0); ANION GAP 7 mmol/L (5-15); CALCIUM 9.3 mg/dL (8.5-10.1); CREATININE 0.46 mg/dL (0.55-1.02)
[2021-06-10] MEDS: FLUTICASONE/VILANTEROL 200-25MCG/INH INH SCH (08:46)
[2021-06-10] MEDS: SENNA/DOCUSATE TABLET PO SCH (08:47)
[2021-06-10] MEDS: AMLODIPINE 5 MG TABLET PO SCH (08:47)
[2021-06-10] MEDS: SERTRALINE 50MG TABLET PO SCH ×2 (08:47→21:58)
[2021-06-10] MEDS: FLECAINIDE 100MG TABLET PO SCH ×2 (08:47→21:59)
[2021-06-10] MEDS: COLCHICINE 0.6 MG CAPSULE PO SCH ×2 (08:47→21:58)
[2021-06-10] MEDS: APIXABAN 5 MG TABLET PO SCH ×2 (08:47→21:58)
[2021-06-10 08:50] VITALS: BP 172/68
[2021-06-10 10:45] VITALS: BP 161/74
[2021-06-10 15:08] VITALS: BP 132/74
[2021-06-10 21:54] VITALS: BP 169/84
[2021-06-11 00:49] VITALS: BP 155/77
[2021-06-11] MEDS: CEFTRIAXONE 2 GM in DEXTROSE 5% 50 ML IVPB SCH (04:03)
[2021-06-11 05:26] LABS: BASOPHILS % (AUTO) 1 % (0-1); EOSINOPHILS % (AUTO) 1 % (1-7); LYMPHOCYTES % (AUTO) 28 % (22-44); MEAN CORPUSCULAR HEMOGLOBIN 28.6 pg (27.0-34.8); MEAN CORPUSCULAR HGB CONC 32.5 g/dL (32.4-35.8); MEAN PLATELET VOLUME 7.8 fL (7.4-10.4); MONOCYTES % (AUTO) 14 % (2-9); NEUTROPHILS % (AUTO) 57 % (42-75); PLATELET COUNT 404 x10^3/uL (130-400); RED BLOOD COUNT 4.57 x10^6/uL (3.82-5.3); RED CELL DISTRIBUTION WIDTH 15.2 % (9.6-15.2)
[2021-06-11] MEDS: DOXYCYCLINE 100 MG in DEXTROSE 5% 250 ML IV SCH ×2 (05:27→15:57)
[2021-06-11 05:34] LABS: ANION GAP 5 mmol/L (5-15); CALCIUM 9.1 mg/dL (8.5-10.1); CHLORIDE 101 mmol/L (98-107); CREATININE 0.45 mg/dL (0.55-1.02)
[2021-06-11 06:53] VITALS: BP 174/98
[2021-06-11] MEDS: SENNA/DOCUSATE TABLET PO SCH (08:17)
[2021-06-11] MEDS: COLCHICINE 0.6 MG CAPSULE PO SCH ×2 (08:19→20:34)
[2021-06-11] MEDS: AMLODIPINE 5 MG TABLET PO SCH (08:19)
[2021-06-11] MEDS: SERTRALINE 50MG TABLET PO SCH ×2 (08:19→20:34)
[2021-06-11] MEDS: FLUTICASONE/VILANTEROL 200-25MCG/INH INH SCH (08:19)
[2021-06-11] MEDS: APIXABAN 5 MG TABLET PO SCH ×2 (08:19→20:34)
[2021-06-11] MEDS: FLECAINIDE 100MG TABLET PO SCH ×2 (08:20→20:34)
[2021-06-11 09:39] VITALS: BP 152/86
[2021-06-11 12:55] VITALS: BP 162/81
[2021-06-11 19:11] VITALS: BP 162/93
[2021-06-12 02:25] VITALS: BP 153/82
[2021-06-12] MEDS: CEFTRIAXONE 2 GM in DEXTROSE 5% 50 ML IVPB SCH (04:44)
[2021-06-12] MEDS: DOXYCYCLINE 100 MG in DEXTROSE 5% 250 ML IV SCH (05:26)
[2021-06-12 06:34] VITALS: BP 164/96
[2021-06-12] MEDS: COLCHICINE 0.6 MG CAPSULE PO SCH (08:26)
[2021-06-12] MEDS: APIXABAN 5 MG TABLET PO SCH (08:27)
[2021-06-12] MEDS: AMLODIPINE 5 MG TABLET PO SCH (08:27)
[2021-06-12] MEDS: SERTRALINE 50MG TABLET PO SCH (08:27)
[2021-06-12] MEDS: SENNA/DOCUSATE TABLET PO SCH (08:28)
[2021-06-12] MEDS: FLUTICASONE/VILANTEROL 200-25MCG/INH INH SCH (08:28)
[2021-06-12] MEDS: FLECAINIDE 100MG TABLET PO SCH (08:43)
[2021-06-12 12:19] VITALS: BP 146/95
[2021-06-12] MEDS ORDERED: CEFD300C37 PO (15:40)
[2021-06-12] MEDS ORDERED: DOXY100C5 PO (15:40)
[2021-06-12] MEDS ORDERED: FLEC100T PO (15:40)
== END 2021-06-12 16:48 | disposition home or self-care (01) | DRG 193 ==
LOC: ED 20:43 → EDIP 22:28 → ICU 06-07 00:55 → 5SO 06-08 14:52
PROVIDERS: ADMIT Family Medicine; ATTEND Family Medicine
DX: J15.9 Unspecified bacterial pneumonia (principal); J96.01 Acute respiratory failure with hypoxia; D68.59 Other primary thrombophilia; E87.1 Hypo-osmolality and hyponatremia; J45.901 Unspecified asthma with (acute) exacerbation; Q21.1 Atrial septal defect; Z68.41 Body mass index [BMI] 40.0-44.9, adult; E46 Unspecified protein-calorie malnutrition; Z20.822 Contact with and (suspected) exposure to COVID-19; E66.01 Morbid (severe) obesity due to excess calories; F12.90 Cannabis use, unspecified, uncomplicated; F32.9 Major depressive disorder, single episode, unspecified; I10 Essential (primary) hypertension; I48.0 Paroxysmal atrial fibrillation; R74.02 Elevation of levels of lactic acid dehydrogenase [LDH]; I49.3 Ventricular premature depolarization; Y95 Nosocomial condition; Z79.01 Long term (current) use of anticoagulants; Z86.711 Personal history of pulmonary embolism; Z86.718 Personal history of other venous thrombosis and embolism; Z87.891 Personal history of nicotine dependence; Z79.899 Other long term (current) drug therapy; Z88.0 Allergy status to penicillin; Z88.2 Allergy status to sulfonamides; Z88.8 Allergy status to other drugs, medicaments and biological substances; Z88.1 Allergy status to other antibiotic agents
CPT/HCPCS: 36415; 84145; 96374; 96375; 99291; J7613; J7626; 71045; 71275; 80048; 80069; 82040; 82728; 83605; 83615; 83735; 84484; 85025; 87040; 93005; 94640; G0378; J0696; J2543; J3370; J7060; Q9967; U0005; J2270; J7040; J7512; U0003

== ENCOUNTER 2021-06-15 16:07 | Outpatient (CLI) | payer OTHER ==
[~2021-06-15 16:07] MED LIST changes: +CEFD300C37 PO; +DOXY100C5 PO
== END 2021-06-15 23:59 | disposition home or self-care (01) ==
LOC: RAD 16:07
PROVIDERS: ATTEND Nurse Practitioner Family
DX: R09.02 Hypoxemia (principal); J18.9 Pneumonia, unspecified organism
CPT/HCPCS: 71046

== ENCOUNTER 2021-06-28 06:34 | Day surgery (SDC) | payer OTHER ==
[~2021-06-28] VITALS: Ht 162.6 cm; Wt 104.1 kg
[2021-06-28] MEDS ORDERED: BUDE10.2 INH (06:57)
[2021-06-28 07:08] VITALS: BP 170/94
[2021-06-28 07:18] LABS: BASOPHILS % (AUTO) 1 % (0-1); EOSINOPHILS % (AUTO) 2 % (1-7); LYMPHOCYTES % (AUTO) 31 % (22-44); MEAN CORPUSCULAR HEMOGLOBIN 28.9 pg (27.0-34.8); MEAN CORPUSCULAR HGB CONC 33.1 g/dL (32.4-35.8); MEAN PLATELET VOLUME 7.9 fL (7.4-10.4); MONOCYTES % (AUTO) 13 % (2-9); NEUTROPHILS % (AUTO) 53 % (42-75); PLATELET COUNT 380 x10^3/uL (130-400); RED CELL DISTRIBUTION WIDTH 15.4 % (9.6-15.2)
[2021-06-28] MEDS ORDERED: PROPOFOL 10 MG/ML, 20ML ONE (07:27)
[2021-06-28 07:28] LABS: ANION GAP 7 mmol/L (5-15); CALCIUM 8.5 mg/dL (8.5-10.1); CHLORIDE 107 mmol/L (98-107); CREATININE 0.68 mg/dL (0.55-1.02)
== END 2021-06-28 08:49 | disposition home or self-care (01) ==
LOC: CACL 06:34
PROVIDERS: ATTEND Internal Medicine Cardiovascular Disease
DX: I48.4 Atypical atrial flutter (principal); I10 Essential (primary) hypertension; J45.909 Unspecified asthma, uncomplicated; F12.90 Cannabis use, unspecified, uncomplicated; Z88.0 Allergy status to penicillin; Z88.1 Allergy status to other antibiotic agents; Z88.2 Allergy status to sulfonamides; Z88.8 Allergy status to other drugs, medicaments and biological substances; Z79.01 Long term (current) use of anticoagulants; Z98.890 Other specified postprocedural states; Z79.899 Other long term (current) drug therapy
CPT/HCPCS: 36415; 80048; 85025; 92960; 93005; J2704